=== PATIENT | female | born 1945 | race Caucasian/White ===

== ENCOUNTER 2020-02-11 17:09 | Emergency (ER) | payer MEDICARE, OTHER ==
[2020-02-11 18:17] LABS: BASOPHILS # (AUTO) 0.1 10^3/uL (0.0-0.1); BASOPHILS % (AUTO) 0.5 %; EOSINOPHILS # (AUTO) 0.1 10^3/uL (0.0-0.7); EOSINOPHILS % (AUTO) 1.5 %; HGB - HEMOGLOBIN 15.2 g/dL (12.0-16.0); LYMPHOCYTES % (AUTO) 21.7 %; MEAN CORPUSCULAR HGB CONC 32.5 g/dL (32.0-36.0); MEAN CORPUSCULAR VOLUME 95.3 fL (81.0-99.0); MEAN PLATELET VOLUME 10.6 fL (7.9-10.8); MONOCYTES # (AUTO) 0.8 10^3/uL (0.0-1.0); MONOCYTES % (AUTO) 8.2 %; NEUTROPHILS # (AUTO) 6.3 10^3/uL (1.5-6.6); NEUTROPHILS % (AUTO) 67.8 %; PLT - PLATELET COUNT 240 10^3/uL (130-450); RED CELL DISTRIBUTION WIDTH 14.2 % (12.0-15.0); WHITE BLOOD COUNT 9.2 x10^3/uL (4.8-10.8)
[2020-02-11 18:28] LABS: ALBUMIN 4.2 g/dL (3.2-5.5); ALBUMIN/GLOBULIN RATIO 1.6 (1.0-2.2); BILIRUBIN,TOTAL 0.6 mg/dL (0.2-1.0); CALCIUM 10.4 mg/dL (8.5-10.3); CREATININE 1.2 mg/dL (0.4-1.0); TOTAL PROTEIN 6.8 g/dL (6.7-8.2)
--- NOTE | 2020-02-11 18:38 | ED Physician Documentation ---
PD HPI CHEST PAIN - Stated complaint Stated Complaint: CHEST PX - Chief complaint Chief Complaint: Cardiac - History obtained from History obtained from: Patient - History of Present Illness Timing - onset: Today Timing - onset during: Exertion Timing - duration: Hours (1) Timing - details: Gradual onset, Now resolved Pain level max: 5 Pain level now: 0 Quality: Pressure Location: Substernal Radiation: No: Jaw, Neck, Back, Abdominal, Left upper extremity, Right upper extremity Improved by: Rest Worsened by: Exertion Associated symptoms: No: Shortness of air, Diaphoresis, Nausea, Vomiting, Feeling faint / dizzy, General Weakness, Palpitations, Cough Recently seen: Not recently seen - Additional information Additional information: 74-year-old female presents to the emergency department with chest pressure today. This occurred while she was gardening, lasted approximately 45 minutes and then resolved. She started gardening again, symptoms recurred and lasted approximately 1 hour. Currently is asymptomatic. Nothing makes it better or worse. No recent travel. No recent surgery. No history of blood clots. No cardiac history in the past. Review of Systems Ten Systems: 10 systems reviewed and negative Constitutional: denies: Fever, Chills Throat: denies: Sore throat Cardiac: reports: Chest pain / pressure. denies: Palpitations, Calf pain Respiratory: denies: Dyspnea, Cough, Hemoptysis, Wheezing GI: denies: Abdominal Pain, Nausea, Vomiting, Diarrhea Skin: denies: Rash Musculoskeletal: denies: Neck pain, Back pain Neurologic: denies: Headache PD PAST MEDICAL HISTORY - Past Medical History Past Medical History: Yes Cardiovascular: Hypertension Respiratory: None HEENT: None Derm: None - Allergies Allergies/Adverse Reactions: Allergies Allergy/AdvReac Type Severity Reaction Status Date / Time codeine AdvReac Nausea Verified 02/11/20 17:20 - Social History Does the pt smoke?: No Smoking Status: Never smoker Does the pt drink ETOH?: No Does the pt have substance abuse?: No - Immunizations Immunizations are current?: Yes PD ED PE NORMAL - Vitals Vital signs reviewed: Yes - General General: Alert and oriented X 3, No acute distress, Well developed/nourished - HEENT HEENT: Atraumatic, PERRL, EOMI, Ears normal, Moist mucous membranes - Neck Neck: Supple, no meningeal sign - Cardiac Cardiac: RRR, Strong equal pulses - Respiratory Respiratory: No respiratory distress, Clear bilaterally - Abdomen Abdomen: Soft, Non tender, Non distended - Back Back: No spinal TTP - Derm Derm: Warm and dry - Extremities Extremities: No edema, No calf tenderness / cord - Neuro Neuro: Alert and oriented X 3 - Psych Psych: Normal mood, Normal affect Results - Vitals Vitals: Vital Signs - 24 hr 02/11/20 02/11/20 02/11/20 17:16 18:05 19:00 Temperature 35.8 C L Heart Rate 118 H 95 75 Respiratory 20 16 16 Rate Blood Pressure 148/81 H 155/78 H 182/89 H O2 Saturation 96 98 99 02/11/20 02/11/20 02/11/20 20:13 20:30 21:00 Temperature Heart Rate 74 72 72 Respiratory 22 16 16 Rate Blood Pressure 169/82 H 169/82 H 180/88 H O2 Saturation 98 99 99 Oxygen O2 Source Room air - EKG (time done) 1711 Rate: Rate (enter#) (102) Rhythm: Sinus tachycardia [place]: Normal Intervals: Normal [place] QRS: Normal Ischemia: Normal ST segments - Labs Labs: Laboratory Tests 02/11/20 02/11/20 02/11/20 18:06 18:06 18:06 WBC 9.2 RBC 4.90 Hgb 15.2 Hct 46.7 MCV 95.3 MCH 31.0 MCHC 32.5 RDW 14.2 Plt Count 240 MPV 10.6 Neut # (Auto) 6.3 Lymph # (Auto) 2.0 Elk # (Auto) 0.8 Eos # (Auto) 0.1 Baso # (Auto) 0.1 Absolute Nucleated RBC 0.00 Nucleated RBC % 0.0 Sodium 142 Potassium 4.2 Chloride 108 Carbon Dioxide 26 Anion Gap 8.0 BUN 17 Creatinine 1.2 H Estimated GFR (MDRD) 44 L Glucose 110 H Calcium 10.4 H Total Bilirubin 0.6 AST 24 ALT 19 Alkaline Phosphatase 88 Troponin I High Sens 31.1 H* Total Protein 6.8 Albumin 4.2 Globulin 2.6 Albumin/Globulin Ratio 1.6 Lipase 30 02/11/20 19:56 WBC RBC Hgb Hct MCV MCH MCHC RDW Plt Count MPV Neut # (Auto) Lymph # (Auto) Elk # (Auto) Eos # (Auto) Baso # (Auto) Absolute Nucleated RBC Nucleated RBC % Sodium Potassium Chloride Carbon Dioxide Anion Gap BUN Creatinine Estimated GFR (MDRD) Glucose Calcium Total Bilirubin AST ALT Alkaline Phosphatase Troponin I High Sens 88.3 H* Total Protein Albumin Globulin Albumin/Globulin Ratio Lipase - Rads (name of study) cxr Radiology: Prelim report reviewed, EMP read contemporaneously, See rad report (No acute cardiopulmonary abnormality is identified. ) PD MEDICAL DECISION MAKING - ED course Complexity details: reviewed results, re-evaluated patient, considered differential, d/w patient, d/w datastage consultant ED course: Patient with a non-ST elevation [place]. Started on a heparin drip. Pain-free in the emergency department. Given aspirin. Discussed the case with Dr. Law, hospitalist at [facility] in [place] at 2118 who graciously accepts in transfer. COBRA forms completed. This document was made in part using voice recognition software. While efforts are made to proofread this document, sound alike and grammatical errors may occur. Departure - Departure Disposition: 02 Transfer Acute Care Hosp Clinical Impression: NSTEMI (non-ST elevated myocardial infarction) Condition: Stable
[2020-02-11] MEDS ORDERED: ASPIRIN CHEW 81 MG TABLET PO STA (18:47)
--- NOTE | 2020-02-11 19:25 | XRAY Report ---
PROCEDURE: Chest 1 View X-Ray INDICATIONS: Chest Pain TECHNIQUE: One view of the chest was acquired. COMPARISON: No previous studies available for comparison. FINDINGS: Surgical changes and devices: None. Lungs and pleura: No pleural effusions or pneumothorax. Lungs are clear. Mediastinum: Mediastinal contours appear normal. Heart size is normal. Bones and chest wall: No suspicious bony lesions. Overlying soft tissues appear unremarkable. IMPRESSION: No acute cardiopulmonary abnormality is identified. Reviewed by: Yoan Sutton MD on 02/11/2020 7:23 PM PDT Approved by: Yoan Sutton MD on 02/11/2020 7:23 PM PDT Station ID: [id number]
[2020-02-11] MEDS ORDERED: HEPARIN 5,000 UNIT/ML VIAL IVP STA (20:36)
[2020-02-11] MEDS ORDERED: HEPARIN 25000UNITS/500ML (D5W) 25,000 UNIT/500 ML BAG IV STA (20:36)
[2020-02-11 22:13] VITALS: BP 164/85
== END 2020-02-11 22:12 | disposition short-term general hospital (02) ==
LOC: ED 17:09
DX: I21.4 Non-ST elevation (NSTEMI) myocardial infarction (principal); R00.0 Tachycardia, unspecified; I10 Essential (primary) hypertension
CPT/HCPCS: 36415; 71045; 80053; 83690; 84484; 85025; 93005; 96374; 99285; A9270

== ENCOUNTER 2020-03-15 10:02 | Outpatient (CLI) | payer MEDICARE, OTHER ==
[2020-03-15 11:02] VITALS: BP 131/81
--- NOTE | 2020-03-15 11:02 | SLEEP CARE CONSULTATION ---
Information from patient questionnaire entered by Tiarra Minor. I have reviewed and concur with the information entered by Tiarra Minor. This document represents the service I personally performed and the decisions made by me, Minal Sales ARNP. History of Present Illness Service Date and Time: 03/15/2020 1002 Reason for Visit: New patient, Previously diagnosed sleep apnea (mild obstructive sleep apnea-hypopnea, AHI 10.9), sleep apnea on CPAP therapy, Re- establish care Chief Complaint: reports: Other (recheck) Usual bedtime: midnight Time it takes to fall asleep: 5-45 minutes Snores at night: No (not with use of machine) Observed to quit breathing while asleep: No Sleeps alone due to snoring: No Number of times waking at night: 2-3 Reasons for waking at night: reports: Bathroom. denies: Choking, Snoring, Gasping for air Toss, Turn, or Twitch while sleeping: No Recalls having dreams: Yes Usually gets out of bed at: 1000 Feels refreshed in the morning: Yes (reasonably) Morning headache: Yes (sometimes) Sleepy or fatigued during the day: Yes (sometimes) Ever fallen asleep while driving: No Takes day naps: Yes (sometimes) Prior sleep studies: Yes Year and Where: 2007 [facility] Type of Sleep Study: Polysomnography Additional HPI information: ZE CAICEDO was diagnosed to have mild, AHI 10.9, obstructive sleep apnea- hypopnea syndrome comes in today to reestablish care with this office. She has been traveling in her RV for the last 4+ years and unable to follow up here. She states knowledge of needing to continue follow up for compliance review to continue getting supplies covered by insurance. - Parasomnia Symptoms Ever been unable to move upon waking from sleep: No Walks in sleep: No Talks in sleep: No Ever acted out dreams in sleep: No Ever felt weak in the knees when startled or emotional: No Bothered by creepy, crawly, restless sensations in legs: Yes (rarely) Problems with memory or concentration: Yes (memory, can't find word for things) CPAP Compliance Data - Data Reviewed with Patient Average duration of nightly device use: 8 hours 38 minutes Compliance rate %: 98 ([email or web address]) Current pressure setting (cmH2O): 10 Average residual AHI: 4.5 Compliance data discussion: Patient is using [employer] for her equipment. She has not getting supplies because she was unable to do follow ups for insurance to pay for supplies so she did not order any. She has not changed the cushion for about a year, she is using a Wisp mask. Subjective Patient concerns: reports: air blowing in eyes, mask leak noise, nasal congestion (occasionally, if sleeping on side), dry mouth, nose, throat (dry mouth, takes a medication that dries her mouth). denies: aerophagia, mask discomfort, condensation in mask/hose, epistaxis, other Observed to snore while using device: No Current pressure setting perceived as: comfortable On therapy, patient: reports: sleeping better, awakening more refreshed, being more awake and alert during the day, more rested overall. denies: drowsiness while driving Initial [place] Sleepiness Scale score: 3 Past Medical History Past Medical History: reports: Hypertension (minor Heart attack on 10 of February), Arthritis, Depression, Other (overactive bladder). denies: Claustrophobia, Congestive Heart Failure, Diabetes, Coronary Heart Disease, Insulin resistance, Arrythmia, Hypothyroidism, Anemia, Anxiety, Mood disorder, GERD Social History The patient's occupation is a RETIRED. Patient is Single and lives in [place]. Have you smoked in the past 12 months: No Alcohol use: Yes Alcohol amount and frequency: 1 glass, 3-4 times/month Caffeine use: Yes Caffeine amount and frequency: 1-2 per day Family History Family history of sleep disordered breathing: No Allergies and Home Medications Drug allergies reviewed: Yes (codiene intolerance) Home medication list reviewed: Yes Allergy and home medication list: Paroxetine HCL 20 mg Oxybutynin 5 mg Amlodipine Besylate 10 mg Atorvastatin 80 mg Losartan Potassium 50 mg Low dose aspirin Multivitamin Turmeric B complex I Cap (lutein & Zeaxanthin) Bacopa for memory Review of Systems Cardiovascular: reports: high blood pressure. denies: palpitations, chest pain, irregular heart rate or pulse, leg or foot swelling Respiratory: denies: shortness of breath Gastrointestinal: denies: heartburn, difficulty swallowing Urinary: reports: urgency Neurological: denies: headaches, seizure, head trauma, speech dysfunction, gait or balance problems Psychiatric: reports: depression. denies: anxiety, mood disorder, claustrophobia Ear/Nose/Throat: reports: nasal congestion (occasionally), dry mouth/throat, wisdom teeth removed. denies: sinus problems, nose bleeds, injury to nose, tonsillectomy Endocrine: denies: thyroid disease Musculoskeletal: denies: joint pain, back pain Immunologic: denies: allergies to food or environment Physical Exam Blood Pressure: 131/81 Cuff size: long Heart Rate: 66 O2 Saturation: 97 Height: 5 ft 5 in Weight: 269 lb Body Mass Index: 44.7 BMI Classification: Morbidly Obese Neck circumference: 15 (inches) HEENT: No craniofacial malformation Nostrils: patent to airflow Turbinates: normal Septum: midline Mouth and throat: normal Soft palate: normal Hard palate: normal Uvula: normal Uvula visualization: 50% Mallampati Class II Tongue: enlarged in size with teeth bird on lateral edges Tonsils: 2+ Chin and jaw: normal size and position Neck: normal w/o lymphadenopathy or thyromegaly Heart: regular rate and rhythm Lungs: clear bilaterally Impression and Plan 1. Obstructive Sleep Apnea-Hypopnea Syndrome, mild, with great treatment compliance and good apnea control. On CPAP therapy, the patient has better sleep quality and is more rested overall. Patient is happy enough with [employer] but has not been getting supplies in about 4-5 years. I will write to update her supplies. She does have a CPAP machine that is 5 years old and I explained that she may update her machine. She states her machine is working fine and does not need to change it at this time. Patient having some air blowing in eyes and air leak noises but has not been changing her mask cushion out but about once a year or so. She also has not been cleaning her mask daily to clean off skin oils/dirt to improve mask life and seal. She was encouraged to get a new mask and wash it daily when she brushes her teeth (put it in her daily routine) to help her remember to do it. Nasal congestion can be reduced with use of a saline nasal spray and a sample was also given to use prior to CPAP to clear nasal secretions and wash off any nasal allergens to facilitate nasal breathing. In addition, a steamy shower before bed will often assist nasal drainage. She voiced understanding and agreement with plan. Patient's apnea severity and rationale for treatment to reduce apnea, improve sleep quality and reduce cardiovascular and cerebrovascular events was reviewed. I also reviewed the benefit of consistent device use of CPAP for hypertension and depression. * Continue CPAP pressure at 10 cmH2O * Use saline nasal spray prior to putting on CPAP to help with nasal congestion * Notify me if snoring with mask or feeling that the pressure is too much or too little * Attempt to lose weight * Call this office if any problems using CPAP * Return for follow up in 1 year, or sooner if concerns arise Visit Type: In Office Time Spent with Patient (minutes): 39 Provider Statement: I spent 100% of the Face to Face Visit with the patient with greater than 50% spent counseling the patient and coordination of care.
== END 2020-03-15 10:03 | disposition home or self-care (01) ==
LOC: SC 10:02
PROVIDERS: ATTEND Nurse Practitioner Family
DX: G47.33 Obstructive sleep apnea (adult) (pediatric) (principal); E66.01 Morbid (severe) obesity due to excess calories; Z68.41 Body mass index [BMI] 40.0-44.9, adult
CPT/HCPCS: 99204; G0463; 99212

== ENCOUNTER 2020-04-10 08:15 | Outpatient (CLI) | payer MEDICARE, OTHER ==
--- NOTE | 2020-04-10 16:19 | DEXA Report ---
PROCEDURE: Dexa Spine and/or Hip INDICATIONS: OSTEOPENIA TECHNIQUE: Dual energy x-ray absorptiometry (DXA) was performed on a [employer] System. Regions measur ed are the AP Spine, femoral neck, and if needed forearm. COMPARISON: None. FINDINGS: Lumbar Spine: Bone Mineral Density 1.263 g/cm/cm,T score 0.7, normal Left Hip: Bone Mineral Density 1.045 g/cm/cm,T score 0.3, normal Left Femoral Neck: Bone Mineral Density 1.038 g/cm/cm, T score 0, normal (T score greater or equal to -1.0: NORMAL) (T score from -1.1 to -2.4: OSTEOPENIA) (T score less than or equal to -2.5 to: OSTEOPOROSIS) Impression: Normal bone density. Patients with diagnosis of osteoporosis or osteopenia should have regular bone mineral density assess ment. For those eligible for Medicare, routine testing is allowed once every 2 years. Testing frequ ency can be increased for patients who have rapidly progressing disease or for those who are receivin g medical therapy to restore bone mass. Reviewed by: Roselyn Larsen MD on 04/10/2020 12:18 PM PDT Approved by: Roselyn Larsen MD on 04/10/2020 12:18 PM PDT Station ID: [id number]
--- NOTE | 2020-04-10 16:20 | Ultrasound Report ---
PROCEDURE: Abdomen Limited INDICATIONS: RUQ PAIN TECHNIQUE: Real-time scanning was performed of the abdominal and retroperitoneal organs, with image documentatio n. COMPARISON: Abdomen ultrasound 05/19/2015. FINDINGS: Liver: Liver is enlarged measuring 17.1 cm. Multiple hypoechoic foci are present the largest in the left lobe measuring 18 x 18 x 19 mm and the largest in the left measuring 40 x 31 x 42 mm. Gallbladder: Gallbladder demonstrates nonmobile foci of increased echogenicity. Wall thickness measur es 1.4 cm. Biliary ducts: Intrahepatic bile ducts are non-dilated. Extrahepatic bile duct caliber measures 5 m m. Normal is 6-7 mm or less in diameter, or 10 mm or less post-cholecystectomy. Pancreas: The pancreas is obscured by overlying bowel gas. Kidneys: Kidneys are normal in size and echotexture. Right kidney measures 10.5 cm long; cortical t hickness measures 1.2 cm. No hydronephrosis or nephrolithiasis. No solid masses. Aorta: Visualized aorta is normal in caliber at less than 3 cm. IVC: Intrahepatic inferior vena cava is patent. Miscellaneous: No free abdominal fluid. IMPRESSION: 1. Hepatomegaly with cysts. 2. Unchanged presumed gallbladder polyps. Reviewed by: Roselyn Larsen MD on 04/10/2020 12:58 PM PDT Approved by: Roselyn Larsen MD on 04/10/2020 12:58 PM PDT Station ID: [id number]
== END 2020-04-10 08:16 | disposition home or self-care (01) ==
LOC: DI 08:15
PROVIDERS: ATTEND Internal Medicine
DX: R10.11 Right upper quadrant pain (principal); R16.0 Hepatomegaly, not elsewhere classified; K76.89 Other specified diseases of liver; Z78.0 Asymptomatic menopausal state
CPT/HCPCS: 76705; 77080

== ENCOUNTER 2020-05-03 10:42 | Outpatient (CLI) | payer MEDICARE, OTHER ==
[2020-05-03 11:08] LABS: CALCIUM 9.8 mg/dL (8.5-10.3); CREATININE 0.8 mg/dL (0.4-1.0)
== END 2020-05-03 10:43 | disposition home or self-care (01) ==
LOC: LAB 10:42
PROVIDERS: ATTEND Internal Medicine Cardiovascular Disease
DX: I10 Essential (primary) hypertension (principal)
CPT/HCPCS: 36415; 80048

== ENCOUNTER 2020-07-10 14:49 | Outpatient (CLI) | payer MEDICARE, OTHER ==
[2020-07-10 15:33] LABS: CALCIUM 10.5 mg/dL (8.5-10.3); CREATININE 0.9 mg/dL (0.4-1.0)
== END 2020-07-10 14:50 | disposition home or self-care (01) ==
LOC: LAB 14:49
PROVIDERS: ATTEND Internal Medicine Cardiovascular Disease
DX: I10 Essential (primary) hypertension (principal)
CPT/HCPCS: 36415; 80048

== ENCOUNTER 2020-09-14 10:17 | Day surgery (SDC) | payer MEDICARE, OTHER ==
[2020-09-14] MEDS ORDERED: LACTATED RINGERS 1,000 ML IV ONE ×2 (10:23→12:00)
[2020-09-14] MEDS ORDERED: fentaNYL 250 MCG/5 ML VIAL ONE (11:39)
[2020-09-14] MEDS ORDERED: MIDAZOLAM 2 MG/2 ML VIAL ONE ×2 (11:39→12:02)
[2020-09-14 12:19] VITALS: BP 110/62
== END 2020-09-14 10:18 | disposition home or self-care (01) ==
LOC: SDS 10:17
PROVIDERS: ATTEND Surgery
DX: Z12.11 Encounter for screening for malignant neoplasm of colon (principal); K57.30 Diverticulosis of large intestine without perforation or abscess without bleeding; K64.8 Other hemorrhoids; I10 Essential (primary) hypertension; G47.30 Sleep apnea, unspecified; I25.2 Old myocardial infarction
CPT/HCPCS: G0121; J3010; J7120

== ENCOUNTER 2021-03-21 13:07 | Outpatient (CLI) | payer MEDICARE, OTHER ==
[2021-03-21 13:30] VITALS: BP 123/68
--- NOTE | 2021-03-21 13:30 | SLEEP CARE CONSULTATION ---
Information from patient questionnaire entered by Tiarra Minor. I have reviewed and concur with the information entered by Tiarra Minor. This document represents the service I personally performed and the decisions made by , Minal Sales ARNP. History of Present Illness Service Date and Time: 03/21/2021 1307 Previous diagnosis: Mild, Obstructive Sleep Apnea-Hypopnea Syndrome AHI: 10.9 Reason for follow up: annual Equipment type: CPAP Equipment obtained from: [facility] (getting supplies as needed) Mask style: Nasal Mask brand: Respironics (Dreamwear Wisp) Backup mask available: No (will keep old mask when replaced) Last cushion change: 1 month-6 weeks Prior sleep studies: Yes Year and Where: 2007 [facility] Type of Sleep Study: Polysomnography HPI additional information: ZE CAICEDO was diagnosed to have mild, AHI 10.9, obstructive sleep apnea- hypopnea syndrome and returned today for CPAP therapy annual follow-up. Sleep Study - Results Type of Sleep Study: Polysomnography Prior sleep studies: Yes Year and Where: 2007 [facility] CPAP Compliance Data - Data Reviewed with Patient Average duration of nightly device use: 9 hours 42 minutes Compliance rate %: 97 Current pressure setting (cmH2O): 10 Average residual AHI: 4.4 Central apnea: 0.4 Obstructive apnea: 3.1 Subjective Patient concerns: denies: aerophagia, mask discomfort, air blowing in eyes, mask leak noise, condensation in mask/hose, nasal congestion, dry mouth, nose, throat, epistaxis, other Observed to snore while using device: No Current pressure setting perceived as: comfortable On therapy, patient: reports: sleeping better, awakening more refreshed, being more awake and alert during the day, more rested overall. denies: drowsiness while driving Initial [place] Sleepiness Scale score: 3 Current [place] Sleepiness Scale score: 3 Allergies and Home Medications Home medication list reviewed: Yes (no changes) Review of Systems Review of systems same as previous: Yes (no changes) Physical Exam Blood Pressure: 123/68 Cuff size: wrist Heart Rate: 77 O2 Saturation: 97 Height: 5 ft 5 in Weight: 254 lb Body Mass Index: 42.3 BMI Classification: Morbidly Obese Impression and Plan 1. Obstructive Sleep Apnea-Hypopnea Syndrome, mild, with good treatment compliance and good apnea control. On CPAP therapy, the patient has better sleep quality and is more rested overall. Patient is satisfied with current CPAP therapy and feels the pressure is comfortable. She has not concerns or issue with CPAP use. Patient encouraged to try to lose weight for her overall health and to reduce apneas. Patient's apnea severity and rationale for treatment to reduce apnea, improve sleep quality and reduce cardiovascular and cerebrovascular events was reviewed. * Continue auto CPAP pressure at 10 cmH2O * Notify me if snoring with mask or feeling that the pressure is too much or too little * Attempt to lose weight * Call this office if any problems using CPAP * Return for follow up in 1 year, or sooner if concerns arise Counseling Topics: Spare mask, Weight loss health impact Visit Type: In Office Time Spent with Patient (minutes): 15 Provider Statement: I spent 100% of the Face to Face Visit with the patient with greater than 50% spent counseling the patient and coordination of care.
== END 2021-03-21 13:08 | disposition home or self-care (01) ==
LOC: SC 13:07
PROVIDERS: ATTEND Nurse Practitioner Family
DX: G47.33 Obstructive sleep apnea (adult) (pediatric) (principal); E66.01 Morbid (severe) obesity due to excess calories; Z68.41 Body mass index [BMI] 40.0-44.9, adult
CPT/HCPCS: 99212; G0463

== ENCOUNTER 2022-03-28 16:12 | Outpatient (CLI) | payer MEDICARE, OTHER ==
--- NOTE | 2022-03-28 16:39 | SLEEP CARE CONSULTATION ---
Information from patient questionnaire entered by Iglesia Salgado. I have reviewed and concur with the information entered by Iglesia Salgado. This document represents the service I personally performed and the decisions made by , Minal Sales ARNP. History of Present Illness Service Date and Time: 03/28/2022 1612 Previous diagnosis: Mild, Obstructive Sleep Apnea-Hypopnea Syndrome AHI: 10.9 Reason for follow up: annual (LAST SEEN 03/20) Equipment type: CPAP (RESMED) Equipment obtained from: [facility] (getting supplies as needed) Mask style: Nasal Mask brand: Respironics (Wisp) Backup mask available: No (will keep old mask when replaced) Last cushion change: 6 weeks or a month Prior sleep studies: Yes Year and Where: 2007 [facility] Type of Sleep Study: Polysomnography HPI additional information: ZE CAICEDO was diagnosed to have mild, AHI 10.9, obstructive sleep apnea- hypopnea syndrome and returned today for CPAP therapy annual follow-up. Sleep Study - Results Type of Sleep Study: Polysomnography Prior sleep studies: Yes Year and Where: 2007 [facility] CPAP Compliance Data - Data Reviewed with Patient Average duration of nightly device use: 9 hours 48 minutes Compliance rate %: 95 (172/180 days used) Current pressure setting (cmH2O): 10 Average residual AHI: 3.1 Average large leak: 0.0 L/min Subjective Missed days of use due to: reports: travel (did not always have power) Patient concerns: denies: aerophagia, mask discomfort, air blowing in eyes, mask leak noise, condensation in mask/hose, nasal congestion, dry mouth, nose, throat, epistaxis Observed to snore while using device: No Current pressure setting perceived as: comfortable On therapy, patient: reports: sleeping better, awakening more refreshed, being more awake and alert during the day, more rested overall. denies: drowsiness while driving Initial [place] Sleepiness Scale score: 3 Current [place] Sleepiness Scale score: 5 (03/28/22) Allergies and Home Medications Drug allergies reviewed: Yes (codeine) Home medication list reviewed: Yes (no changes) Allergy and home medication list: Allergies codeine Adverse Reaction (Verified 02/11/20 17:20) Nausea Review of Systems Review of systems same as previous: Yes (no changes) Physical Exam Vital signs obtained and entered by: GLENNA IBRAHIM Blood Pressure: 146/76 (left arm ) Cuff size: regular Heart Rate: 85 O2 Saturation: 97 Height: 5 ft 5 in Weight: 257 lb Body Mass Index: 42.7 BMI Classification: Morbidly Obese Impression and Plan 1. Obstructive Sleep Apnea-Hypopnea Syndrome, mild, with good treatment compliance and good apnea control. On CPAP therapy, the patient has better sleep quality and is more rested overall. Patient states on her machine there is a message stating it has exceeded motor life. She states she thinks she needs a new machine. Her machine was last updated in 2014. The patients CPAP is over 5 years old and of reasonable use. Thus, the CPAP will be updated. A DWO prescription will be made. Compliance guidelines for new device and follow up discussed. Patient's apnea severity and rationale for treatment to reduce apnea, improve sleep quality and reduce cardiovascular and cerebrovascular events was reviewed. 2. Obesity, unspecified. Currently patients BMI is 42.7. Obesity increases the risk of apnea, CPAP pressure requirements and overall health risks especially cardiovascular and diabetes. Thus patient is advised to lose weight. Weight loss can be done with reducing portion size, reducing refined foods and balancing content with vegetables, fruit and whole grain foods. In addition, patient encouraged to get regular exercise. * Continue CPAP pressure at 10 cmH2O * Update machine * Update supplies * Notify me if snoring with mask or feeling that the pressure is too much or too little * Attempt to lose weight * Call this office if any problems using CPAP * Return for follow up one month after obtaining new device, or sooner if concerns arise Counseling Topics: Spare mask, Weight loss health impact Visit Type: In Office Time Spent with Patient (minutes): 21 Provider Statement: I spent 100% of the Face to Face Visit with the patient with greater than 50% spent counseling the patient and coordination of care.
[2022-03-28 16:40] VITALS: BP 146/76
== END 2022-03-28 16:13 | disposition home or self-care (01) ==
LOC: SC 16:12
PROVIDERS: ATTEND Nurse Practitioner Family
DX: G47.33 Obstructive sleep apnea (adult) (pediatric) (principal); E66.01 Morbid (severe) obesity due to excess calories; Z68.41 Body mass index [BMI] 40.0-44.9, adult
CPT/HCPCS: 99213; G0463; 99212

== ENCOUNTER 2023-04-02 10:00 | Outpatient (CLI) | payer MEDICARE, OTHER ==
--- NOTE | 2023-04-03 11:18 | Mammography Report ---
BILATERAL DIGITAL SCREENING MAMMOGRAM 3D/2D WITH ADDITIONAL VIEWS: 04/02/2023 CLINICAL: Routine screening. Comparison is made to exams dated: 11/29/2014 mammogram, 08/13/2013 mammogram, 01/24/2011 mammogram, and 11/14/2009 mammogram - [facility]. Both breasts are almost entirely fatty (category a/<25% glandular tissue). There are benign calcifications in both breasts. No significant masses, calcifications, or other findings are seen in either breast. There has been no significant interval change. IMPRESSION: BENIGN There is no mammographic evidence of malignancy. A 1 year screening mammogram is recommended. Based on the Tyrer Cuzick model (a risk assessment model) the patients lifetime risk is 1.4% and her 10 year risk is 0.0%. According to the ACR, ACS, and NCCN guidelines, an annual breast MRI exam jeimy g with mammogram is recommended if the patients lifetime risk is 20% or greater. This exam was interpreted at Station ID: [id number]. NOTE: For mammograms, a report in lay terms will be sent to the patient. Approximately 15% of breast malignancies will not be visualized mammographically. In the management of a palpable breast mass, a negative mammogram must not discourage biopsy of a clinically suspicious lesion. Electronically Signed By: Keith wayne/[email or web address]:04/02/2023 14:20:15 letter sent: No_Letter ACR BI-RADS Category 2: Benign Finding(s) 3342F PARENCHYMAL PATTERN: (F) - The breast(s) demonstrate(s) diffuse fatty replacement. BI-RADS CATEGORY: (2) - 2 Mammogram [id number] 1 year screening LATERALITY: (B)
== END 2023-04-02 10:01 | disposition home or self-care (01) ==
LOC: DI.S 10:00
PROVIDERS: ATTEND Internal Medicine
DX: Z12.31 Encounter for screening mammogram for malignant neoplasm of breast (principal)